=== PATIENT | female | born 1990 | race Caucasian/White ===

== ENCOUNTER 2019-05-16 20:16 | Emergency (ER) | payer OTHER ==
[2019-05-16 20:21] VITALS: BP 112/75; PULSE 105; RESP 20; TEMP 98.7
--- NOTE | 2019-05-16 20:27 | ED ---
Skin/Abscess/FB HPI - General Chief complaint: Skin/Abscess/Foreign Body Stated complaint: Insect bite Time Seen by Provider: 05/16/19 20:26 Source: patient, RN notes reviewed, old records reviewed Mode of arrival: ambulatory Limitations: no limitations - History of Present Illness Initial comments: This is a 20-year-old female the ER for evaluation. Patient complaining of multiple complaints upper respiratory infection with Raynaud's cough and congestion, patient also complains of right foot pain she has abrasion the anterior aspect of foot with some drainage. Some purulent drainage at times. Significant pain and swelling. No other injury or complaints noted. No fevers. Denies increasing symptoms, symptoms noticed yesterday have been the same brought throughout the day, no similar history, denies any significant bug bite MD complaint: rash (Right lower extremity right foot) -: days(s) Tetanus Up to Date: yes Location: R foot Severity: mild Severity scale (1-10): 3 Quality: aching Consistency: constant Improves with: none Worsens with: none Context: none Associated symptoms: denies other symptoms Treatments Prior to Arrival: none - Related Data Previous Rx's Medication Instructions Recorded Amoxic-Pot Clav 875-125Mg 1 tab PO Q12HR #20 tablet 05/16/19 [Augmentin 875-125] Allergies Allergy/AdvReac Type Severity Reaction Status Date / Time [facility] [From [facility] Allergy Rash/Hives Verified 05/16/19 20:21 Review of Systems ROS Statement: Those systems with pertinent positive or pertinent negative responses have been documented in the HPI. ROS Other: All systems not noted in ROS Statement are negative. Past Medical History Past Medical History: No Reported History History of Any Multi-Drug Resistant Organisms: None Reported Past Surgical History: Section, Tonsillectomy Past Psychological History: No Psychological Hx Reported Smoking Status: Current every day smoker Past Alcohol Use History: None Reported Past Drug Use History: Methamphetamine General Exam - General Exam Comments Initial Comments: Right foot does have inflammation, raised area of erythema with mild drainage Limitations: no limitations General appearance: alert, in no apparent distress Head exam: Present: atraumatic, normocephalic, normal inspection Eye exam: Present: normal appearance, PERRL, EOMI. Absent: scleral icterus, conjunctival injection, periorbital swelling ENT exam: Present: normal exam, mucous membranes moist Neck exam: Present: normal inspection. Absent: tenderness, meningismus, lymphadenopathy Respiratory exam: Present: normal lung sounds bilaterally. Absent: respiratory distress, wheezes, rales, rhonchi, stridor Cardiovascular Exam: Present: regular rate, normal rhythm, normal heart sounds. Absent: systolic murmur, diastolic murmur, rubs, gallop, clicks GI/Abdominal exam: Present: soft, normal bowel sounds. Absent: distended, tenderness, guarding, rebound, rigid Extremities exam: Present: normal inspection, full ROM, normal capillary refill. Absent: tenderness, pedal edema, joint swelling, calf tenderness Back exam: Present: normal inspection Neurological exam: Present: alert, oriented X3, CN II-XII intact Psychiatric exam: Present: normal affect, normal mood Skin exam: Present: warm, dry, intact, normal color. Absent: rash Course Vital Signs 05/16/19 20:18 Temperature 98.7 F Pulse Rate 105 H Respiratory 20 Rate Blood Pressure 112/75 O2 Sat by Pulse 97 Oximetry - Reevaluation(s) Reevaluation #1: 05/16/19 21:47 Medical records reviewed Reevaluation #2: 05/16/19 21:47 A she is encouraged to watch for increasing redness and erythema up leg Medical Decision Making - Medical Decision Making 18 female the ER for evaluation of right foot abrasion progressive cellulitis. We'll place on antibiotics and discharged home Disposition Clinical Impression: Cellulitis of right foot Disposition: HOME SELF-CARE Condition: Good Instructions (If sedation given, give patient instructions): Cellulitis (ED) Prescriptions: Amoxic-Pot Clav 875-125Mg [Augmentin 875-125] 1 tab PO Q12HR #20 tablet Is patient prescribed a controlled substance at d/c from ED?: No Referrals: None,Stated [REFERRING] - 1-2 days
[2019-05-16] MEDS ORDERED: DEXAMETHASONE 4 MG TAB PO STA (21:44)
[2019-05-16] MEDS ORDERED: SULFAMETH-TMP DS STARTER PACK 2 TAB BTL PO STA (21:44)
[2019-05-16] MEDS ORDERED: SULFAMETHOX-TMP 800-160MG 1 EACH TAB PO STA (21:44)
[2019-05-16] MEDS ORDERED: AMOXIC-POT CLAV 875MG STARTER 2 EACH TABLET PO STA (21:45)
[2019-05-16] MEDS ORDERED: AMOXIC-POT CLAV 875-125MG 1 EACH TAB PO STA (21:45)
== END 2019-05-16 22:02 | disposition home or self-care (01) ==
LOC: EC 20:16
DX: L03.115 Cellulitis of right lower limb (principal); R05 Cough; R09.89 Other specified symptoms and signs involving the circulatory and respiratory systems; F17.200 Nicotine dependence, unspecified, uncomplicated; Z88.1 Allergy status to other antibiotic agents
CPT/HCPCS: 99282; J8540